=== PATIENT | female | born 1995 | race Caucasian/White ===

== ENCOUNTER 2016-09-27 20:02 | Emergency (ER) | payer MEDICAID ==
[~2016-09-27] VITALS: Ht 160 cm; Wt 52.3 kg
[2016-09-27] MEDS ORDERED: KETOROLAC 30 MG/1 ML IM ONE (20:30)
[2016-09-27] MEDS ORDERED: DIAZEPAM 5 MG TABLET PO ONE (20:30)
[2016-09-27] MEDS ORDERED: DIAZEPAM 5 MG TABLET ONE (20:44)
[2016-09-27] MEDS ORDERED: HYDROcodone/APAP 5/325 TABLET ONE ×2 (20:58→21:58)
[2016-09-27] MEDS ORDERED: HYDROcodone/APAP 5/325 TABLET PO ONE ×2 (21:00→22:00)
[2016-09-27 22:30] VITALS: BP 145/68
== END 2016-09-27 22:31 ==
LOC: ED 22:25
DX: S16.1XXA Strain of muscle, fascia and tendon at neck level, initial encounter (principal); X58.XXXA Exposure to other specified factors, initial encounter; Y93.89 Activity, other specified; Y92.89 Other specified places as the place of occurrence of the external cause; Y99.8 Other external cause status
CPT/HCPCS: 99283; J7512

== ENCOUNTER 2017-06-19 20:19 | Emergency (ER) | payer MEDICAID ==
[~2017-06-19] VITALS: Ht 160 cm; Wt 43.9 kg
[2017-06-19 20:27] VITALS: BP 117/85
[2017-06-19] MEDS ORDERED: HYDROcodone/APAP 5/325 TABLET ONE (20:47)
[2017-06-19] MEDS ORDERED: DIAZEPAM 5 MG TABLET ONE (20:47)
[2017-06-19] MEDS ORDERED: HYDROcodone/APAP 5/325 TABLET PO ONE (21:00)
[2017-06-19] MEDS ORDERED: DIAZEPAM 5 MG TABLET PO ONE (21:00)
== END 2017-06-19 21:35 | disposition home or self-care (01) ==
LOC: ED 21:29
DX: S16.1XXA Strain of muscle, fascia and tendon at neck level, initial encounter (principal); G89.29 Other chronic pain; M54.2 Cervicalgia; X58.XXXA Exposure to other specified factors, initial encounter; Y93.89 Activity, other specified; Y92.89 Other specified places as the place of occurrence of the external cause; Y99.8 Other external cause status
CPT/HCPCS: 99283

== ENCOUNTER 2017-06-21 00:38 | Emergency (ER) | payer MEDICAID ==
[~2017-06-21] VITALS: Ht 160 cm; Wt 43.5 kg
[2017-06-21 00:39] VITALS: BP 129/84
[2017-06-21] MEDS ORDERED: OXYcodone/APAP 5/325MG TABLET PO ONE (01:30)
[2017-06-21] MEDS ORDERED: DIAZEPAM 5 MG TABLET PO ONE (01:30)
== END 2017-06-21 01:24 | disposition home or self-care (01) ==
LOC: ED 01:18
DX: G89.29 Other chronic pain (principal); M54.2 Cervicalgia
CPT/HCPCS: 99283

== ENCOUNTER 2017-06-27 05:17 | Inpatient (IN) | payer MEDICAID ==
[~2017-06-27] VITALS: Ht 160 cm; Wt 61.5 kg
[2017-06-27] MEDS: LEVOFLOXACIN/PMX 750MG/150ML 150 ML IV SCH (04:00)
[2017-06-27] MEDS ORDERED: ALBU0.63 NEB (05:48)
[2017-06-27] MEDS ORDERED: METH500T97 PO (05:48)
[2017-06-27] MEDS ORDERED: OXYC-302 PO (05:49)
[2017-06-27] MEDS ORDERED: SODIUM CHLORIDE 0.9% 1,000ML IVBOLUS ONE ×2 (06:00→07:00)
[2017-06-27] MEDS ORDERED: SODIUM CHLORIDE FLUSH 10ML SYR IVF ONE (06:00)
[2017-06-27 06:12] LABS: HEMOGLOBIN 14.4 g/dL (11.7-16.4); WHITE BLOOD COUNT 34.2 x10^3/uL (3.4-10)
[2017-06-27 06:17] LABS: DAU SCREEN DISCLAIMER
[2017-06-27 06:25] LABS: BLOOD UREA NITROGEN 11 mg/dL (7-18)
[2017-06-27 06:31] LABS: DIFF TOTAL CELLS COUNTED 100 CELL DIFF; RAPID INFLUENZA A Negative (Negative); RAPID INFLUENZA B Negative (Negative)
[2017-06-27 06:33] LABS: VERIFY COUNTS? YES
[2017-06-27] MEDS ORDERED: ACETAMINOPHEN 500 MG TABLET PO ONE (07:00)
[2017-06-27] MEDS ORDERED: ACETAMINOPHEN 500 MG TABLET ONE (07:00)
[2017-06-27] MEDS ORDERED: MORPHINE SULFATE 4 MG/ML, 1ML ONE (07:17)
[2017-06-27] MEDS ORDERED: LEVOFLOXACIN/PMX 500MG/100ML 100 ML ONE (07:17)
[2017-06-27] MEDS ORDERED: MORPHINE SULFATE 4 MG/ML, 1ML IVPush ONE (07:30)
[2017-06-27] MEDS ORDERED: LEVOFLOXACIN/PMX 500MG/100ML 100 ML IV ONE (07:30)
[2017-06-27] MEDS ORDERED: SODIUM CHLORIDE 0.9% 1,000 ML IV SCH (08:13)
[2017-06-27] MEDS ORDERED: ONDANSETRON 2MG/ML, 2ML IVPush PRN (08:30)
[2017-06-27] MEDS ORDERED: CEFTRIAXONE PMX 2GM/50ML 50 ML IV SCH (08:30)
[2017-06-27] MEDS ORDERED: ONDANSETRON ODT 4 MG PO PRN (08:30)
[2017-06-27] MEDS ORDERED: AZITHROMYCIN 500 MG in SODIUM CHLORIDE 0.9% 250 ML IV SCH (08:30)
[2017-06-27] MEDS ORDERED: LEVOFLOXACIN/PMX 750MG/150ML 150 ML IV SCH (09:00)
[2017-06-27] MEDS: NICOTINE 14MG/24 HR PATCH.TD24 TD SCH (10:07)
[2017-06-27] MEDS: ENOXAPARIN 40 MG/0.4 ML SQ SCH (10:07)
[2017-06-27] MEDS: ACETAMINOPHEN 325 MG TABLET PO PRN ×2 (12:44→22:16)
[2017-06-27] MEDS: METHOCARBAMOL 750 MG TABLET PO PRN (12:44)
[2017-06-27 13:16] VITALS: BP 97/61
[2017-06-27 19:05] VITALS: BP 98/66
[2017-06-28] MEDS: OXYcodone IR 5MG TABLET PO PRN ×4 (00:02→20:00)
[2017-06-28 01:22] VITALS: BP 91/52
[2017-06-28] MEDS: SODIUM CHLORIDE 0.9% 1,000 ML IV SCH ×3 (03:49→20:00)
[2017-06-28 06:36] LABS: HEMATOCRIT 29.8 % (34.6-47.8); HEMOGLOBIN 9.8 g/dL (11.7-16.4); WHITE BLOOD COUNT 15.3 x10^3/uL (3.4-10)
[2017-06-28 06:47] LABS: BLOOD UREA NITROGEN 6 mg/dL (7-18)
[2017-06-28 06:52] LABS: ASPARTATE AMINO TRANSFERASE 26 U/L (15-37)
[2017-06-28 07:01] LABS: DIFF TOTAL CELLS COUNTED 200 CELL DIFF; VERIFY COUNTS? YES
[2017-06-28 07:39] VITALS: BP 92/58
[2017-06-28] MEDS: NICOTINE 14MG/24 HR PATCH.TD24 TD SCH (07:50)
[2017-06-28] MEDS: LEVOFLOXACIN/PMX 750MG/150ML 150 ML IV SCH (07:50)
[2017-06-28] MEDS: ENOXAPARIN 40 MG/0.4 ML SQ SCH (07:51)
[2017-06-28] MEDS ORDERED: SODIUM CHLORIDE 0.9% 1,000 ML IV SCH ×2 (08:13→23:30)
[2017-06-28] MEDS ORDERED: CALCIUM CARBONATE 500 MG TAB.CHEW PO PRN (10:00)
[2017-06-28] MEDS ORDERED: ACETAMINOPHEN 325 MG TABLET PO PRN (13:30)
[2017-06-28] MEDS ORDERED: HYDROcodone/CHLORPHENIR ORAL SUSP PO PRN (13:30)
[2017-06-28] MEDS: GUAIFENESIN/DM 200-20MG, 10ML UDC PO PRN ×2 (13:48→21:34)
[2017-06-28 13:57] VITALS: BP 102/65
[2017-06-28 14:21] LABS: HEMATOCRIT 31.5 % (34.6-47.8); HEMOGLOBIN 10.6 g/dL (11.7-16.4); WHITE BLOOD COUNT 13.8 x10^3/uL (3.4-10)
[2017-06-28 14:41] LABS: DIFF TOTAL CELLS COUNTED 100 CELL DIFF
[2017-06-28 14:44] LABS: VERIFY COUNTS? YES
[2017-06-28] MEDS: BENZONATATE 100 MG CAPSULE PO SCH ×2 (16:26→20:00)
[2017-06-28 19:42] VITALS: BP 117/72
[2017-06-29 00:59] VITALS: BP 118/76
[2017-06-29] MEDS: METHOCARBAMOL 750 MG TABLET PO PRN (01:30)
[2017-06-29] MEDS: SODIUM CHLORIDE 0.9% 1,000 ML IV SCH (03:54)
[2017-06-29] MEDS: OXYcodone IR 5MG TABLET PO PRN ×3 (05:26→16:20)
[2017-06-29 06:26] LABS: BLOOD UREA NITROGEN 3 mg/dL (7-18)
[2017-06-29 07:16] VITALS: BP 98/65
[2017-06-29] MEDS ORDERED: POTASSIUM PHOSPHATE 44 MEQ in SODIUM CHLORIDE 0.9% 500 ML IV ONE (07:30)
[2017-06-29] MEDS ORDERED: POTASSIUM CHLORIDE 20 MEQ TAB.ER.PRT PO ONE (07:30)
[2017-06-29] MEDS ORDERED: MAGNESIUM SULFATE PMX 2GM/50ML 50 ML IV ONE (07:30)
[2017-06-29] MEDS: ENOXAPARIN 40 MG/0.4 ML SQ SCH (08:53)
[2017-06-29] MEDS: BENZONATATE 100 MG CAPSULE PO SCH (08:53)
[2017-06-29] MEDS: NICOTINE 14MG/24 HR PATCH.TD24 TD SCH (08:53)
[2017-06-29] MEDS: LEVOFLOXACIN/PMX 750MG/150ML 150 ML IV SCH (08:53)
[2017-06-29] MEDS ORDERED: LEVO750T26 PO (12:32)
[2017-06-29 13:47] VITALS: BP 111/70
[2017-06-29] MEDS ORDERED: PNEUMOCOCCAL 23 VACCINE IM-VACC ONE (16:00)
== END 2017-06-29 18:40 | disposition home or self-care (01) | DRG 871 ==
LOC: ED 06:22 → EDIP 07:38 → 4EST 08:47
PROVIDERS: ADMIT Family Medicine; ATTEND Hospitalist
DX: A41.9 Sepsis, unspecified organism (principal); E43 Unspecified severe protein-calorie malnutrition; J18.1 Lobar pneumonia, unspecified organism; E87.1 Hypo-osmolality and hyponatremia; E83.42 Hypomagnesemia; E87.6 Hypokalemia; F14.10 Cocaine abuse, uncomplicated; F17.200 Nicotine dependence, unspecified, uncomplicated; E83.39 Other disorders of phosphorus metabolism; G89.29 Other chronic pain; J45.909 Unspecified asthma, uncomplicated; R65.20 Severe sepsis without septic shock; M19.90 Unspecified osteoarthritis, unspecified site; M54.2 Cervicalgia; Z88.8 Allergy status to other drugs, medicaments and biological substances; Z88.6 Allergy status to analgesic agent; Z71.6 Tobacco abuse counseling; Z88.2 Allergy status to sulfonamides; Z68.24 Body mass index [BMI] 24.0-24.9, adult
CPT/HCPCS: 36415; 71010; 71020; 80048; 80053; 80307; 81001; 82040; 83605; 83735; 84100; 84145; 84703; 85025; 85379; 87040; 87086; 87400; 90732; 93005; 96361; 96365; J1650; J1956; Q0162; G0479; J3475; J7030; J7040

== ENCOUNTER 2017-07-16 14:56 | Emergency (ER) | payer MEDICAID ==
[~2017-07-16] VITALS: Ht 160 cm; Wt 47.0 kg
[~2017-07-16 14:56] MED LIST: ALBU0.63 NEB; LEVO750T26 PO; METH500T97 PO; OXYC-302 PO
[2017-07-16 15:02] VITALS: BP 129/85
== END 2017-07-16 16:03 | disposition home or self-care (01) ==
LOC: ED 15:49
DX: L02.213 Cutaneous abscess of chest wall (principal)
CPT/HCPCS: 99283